=== PATIENT | male | born 1965 | race Hispanic/Latino ===

== ENCOUNTER 2023-03-01 06:17 | Inpatient (IN) | payer BC ==
[2023-03-01] MEDS ORDERED: Fentanyl 250 MCG/5 ML VIAL ONE (06:26)
[2023-03-01] MEDS ORDERED: Midazolam HCl 2 mg/2 ml Vial ONE ×2 (06:26→07:27)
[2023-03-01] MEDS ORDERED: Lidocaine 1% MPF 2 ML VIAL ONE (06:47)
[2023-03-01 06:58] LABS: #Eosinphils 0.1 thou/uL (0.0-0.7); #Monocytes 0.5 thou/uL (0.11-0.59); #Neutrophils 1.6 thou/uL (1.40-6.50); %Basophils 0.5 % (0.0-1.0); %Eosinophils 1.9 % (0.0-10.0); %Lymphocytes 40.3 % (21.0-51.0); %Monocytes 13.7 % (0.0-10.0); %Neutrophils 43.3 % (42.0-75.0); Hematocrit 40.8 % (42.0-52.0); Hemoglobin 13.2 g/dL (14.0-18.0); Mean Corpuscular HGB CONC 32.4 g/dL (32.0-36.0); Mean Corpuscular Hemoglobin 27.2 pg (27.0-31.0); Mean Corpuscular Volume 84.1 fl (78.0-98.0); Mean Platelet Volume 9.8 fL (7.4-10.4); Platelet Count 304 10x3/uL (130-400); RBC Distribution Width 15.4 % (11.5-14.5); Red Blood Cell (RBC) Count 4.85 mill/uL (4.70-6.10); White Blood Cell (WBC) Count 3.7 10x3/uL (4.8-10.8)
[2023-03-01] MEDS ORDERED: Vancomycin 1 GM VIAL ONE (07:12)
[2023-03-01] MEDS ORDERED: Thrombin 5000 UNITS/5 ML VIAL ONE ×2 (07:12→08:27)
[2023-03-01 07:13] LABS: INR-International Normal Ratio 0.9
[2023-03-01 07:14] LABS: PTT 26.7 sec (22.9-36.1)
[2023-03-01 07:19] LABS: Anion Gap 13 mmol/L (10-20); BUN (Urea Nitrogen) 16 mg/dL (8.4-25.7); Calc. Creatinine Clearance 178 mL/min (70-130); Calcium 9.2 mg/dL (7.8-10.44); Carbon Dioxide 26 mmol/L (22-29); Chloride 104 mmol/L (98-107); Estimated GFR 107; Glucose 126 mg/dL (70-105); Potassium 4.1 mmol/L (3.5-5.1); Sodium 139 mmol/L (136-145)
[2023-03-01] MEDS ORDERED: Sodium Chloride 0.9% 100 ML ONE (07:26)
[2023-03-01] MEDS ORDERED: CEFAZOLIN 2 GM VIAL ONE (07:26)
[2023-03-01] MEDS ORDERED: ePHEDrine Sulfate 50 MG/10 ML VIAL ONE (07:53)
[2023-03-01] MEDS ORDERED: Ondansetron PF 4 MG/2 ML Vial ONE ×3 (07:53→11:34)
[2023-03-01] MEDS ORDERED: Ketorolac Tromethamine 30 MG/ML VIAL ONE (07:53)
[2023-03-01] MEDS ORDERED: PHENYLEPHRINE-NS 100 MCG/ML 10 ML SYRINGE ONE (07:53)
[2023-03-01] MEDS ORDERED: Dexamethasone 20 MG/5 ML VIAL ONE (07:53)
[2023-03-01] MEDS ORDERED: Rocuronium Bromide 10 MG/ML (10ML VIAL) ONE (07:53)
[2023-03-01] MEDS ORDERED: PROPOFOL 200 MG/20 ML VIAL ONE (07:53)
[2023-03-01] MEDS ORDERED: HYDROmorphone 2 MG/ML VIAL ONE (08:42)
[2023-03-01] MEDS ORDERED: SUGAMMADEX SODIUM 200 MG/2 ML VIAL ONE (10:14)
[2023-03-01] MEDS ORDERED: Rocuronium Bromide 50 MG/5 ML VIAL ONE (10:14)
[2023-03-01] MEDS ORDERED: diphenhydrAMINE 25 MG CAP PO PRN (11:05)
[2023-03-01] MEDS ORDERED: Acetaminophen 325 MG TAB PO PRN (11:05)
[2023-03-01] MEDS ORDERED: Milk Of Magnesia 30 ML UDCUP PO PRN (11:05)
[2023-03-01] MEDS ORDERED: Ondansetron PF 4 MG/2 ML Vial IVP PRN ×2 (11:05→12:30)
[2023-03-01] MEDS ORDERED: hydrALAZINE 20 MG/ML VIAL SLOW IVP PRN (11:09)
[2023-03-01] MEDS ORDERED: tiZANidine HCl 4 MG TAB PO PRN (11:09)
[2023-03-01] MEDS ORDERED: Morphine Sulfate 100 MG in Dextrose 5% in Water 98 ML IV SCH (12:30)
[2023-03-01] MEDS ORDERED: diphenhydrAMINE 50 MG/ML VIAL IM/IV PRN (12:30)
[2023-03-01] MEDS ORDERED: Naloxone HCl 0.4 mg/ml Vial IV PRN (12:30)
[2023-03-01] MEDS ORDERED: HYDROmorphone 0.5 MG/0.5 ML SYRINGE ONE ×2 (13:01→13:34)
[2023-03-01] MEDS: CEFAZOLIN 2 GM in Sodium Chloride 0.9% 100 ML IVPB SCH ×2 (15:57→22:16)
[2023-03-01 16:09] VITALS: BMI 34.9
[2023-03-01] MEDS: Sodium Chloride 0.9% 1,000 ML IV SCH (16:31)
[2023-03-01] MEDS: Ketorolac Tromethamine 30 MG/ML VIAL IVP SCH ×2 (17:33→23:16)
[2023-03-01] MEDS ORDERED: Ketorolac Tromethamine 30 MG/ML VIAL IVP SCH (18:00)
[2023-03-01] MEDS: Docusate 100 MG CAP PO SCH (20:44)
[2023-03-01] MEDS ORDERED: Gabapentin 300 MG CAP PO SCH (22:00)
[2023-03-01] MEDS ORDERED: Tamsulosin HCl 0.4 MG CAP PO SCH (22:00)
[2023-03-01] MEDS ORDERED: Sertraline 100 MG TAB PO SCH (22:00)
[2023-03-01] MEDS: diphenhydrAMINE 25 MG CAP PO PRN (23:17)
[2023-03-02] MEDS: Sodium Chloride 0.9% 1,000 ML IV SCH ×2 (00:28→13:09)
[2023-03-02] MEDS: CEFAZOLIN 2 GM in Sodium Chloride 0.9% 100 ML IVPB SCH ×3 (05:27→23:38)
[2023-03-02] MEDS: Ketorolac Tromethamine 30 MG/ML VIAL IVP SCH ×4 (05:28→23:38)
[2023-03-02 06:28] LABS: #Monocytes 0.9 thou/uL (0.11-0.59); #Neutrophils 6.3 thou/uL (1.40-6.50); %Basophils 0.1 % (0.0-1.0); %Lymphocytes 15.5 % (21.0-51.0); %Monocytes 10.2 % (0.0-10.0); %Neutrophils 73.8 % (42.0-75.0); Hematocrit 33.6 % (42.0-52.0); Hemoglobin 10.7 g/dL (14.0-18.0); Mean Corpuscular HGB CONC 31.8 g/dL (32.0-36.0); Mean Corpuscular Hemoglobin 27.6 pg (27.0-31.0); Mean Corpuscular Volume 86.6 fl (78.0-98.0); Mean Platelet Volume 10.2 fL (7.4-10.4); Platelet Count 262 10x3/uL (130-400); RBC Distribution Width 15.7 % (11.5-14.5); Red Blood Cell (RBC) Count 3.88 mill/uL (4.70-6.10); White Blood Cell (WBC) Count 8.6 10x3/uL (4.8-10.8)
[2023-03-02 07:33] LABS: Anion Gap 10 mmol/L (10-20); BUN (Urea Nitrogen) 16 mg/dL (8.4-25.7); Calc. Creatinine Clearance 183 mL/min (70-130); Calcium 8.5 mg/dL (7.8-10.44); Carbon Dioxide 30 mmol/L (22-29); Chloride 102 mmol/L (98-107); Estimated GFR 107; Glucose 119 mg/dL (70-105); Potassium 4.3 mmol/L (3.5-5.1); Sodium 138 mmol/L (136-145)
[2023-03-02] MEDS: diphenhydrAMINE 25 MG CAP PO PRN ×2 (08:02→16:49)
[2023-03-02] MEDS: Loratadine 10 MG TAB PO SCH (08:03)
[2023-03-02] MEDS: Fluticasone Propionate Nasal Spray 16 gm Bottle NASAL SCH (08:03)
[2023-03-02] MEDS: Docusate 100 MG CAP PO SCH ×2 (08:03→20:35)
[2023-03-02] MEDS ORDERED: Gabapentin 300 MG CAP PO SCH ×2 (09:00)
[2023-03-02] MEDS ORDERED: Cetirizine HCl 10 MG TAB PO SCH (09:00)
[2023-03-02] MEDS ORDERED: Acetaminophen/Codeine 30-300mg Tablet PO PRN (13:16)
[2023-03-02] MEDS ORDERED: Diazepam 5 MG TAB PO PRN (13:16)
[2023-03-02] MEDS ORDERED: HYDROcodone/Acetaminophen 5/325 mg Tablet PO PRN (13:16)
[2023-03-02] MEDS ORDERED: Morphine 2 MG/ML VIAL SLOW IVP PRN (13:17)
[2023-03-02] MEDS: Gabapentin 300 MG CAP PO SCH ×2 (14:23→20:36)
[2023-03-02] MEDS: HYDROcodone/Acetaminophen 10/325 mg Tablet PO PRN ×2 (14:24→20:40)
[2023-03-02] MEDS ORDERED: Sertraline 100 MG TAB PO SCH ×2 (21:00)
[2023-03-02] MEDS ORDERED: Tamsulosin HCl 0.4 MG CAP PO SCH ×2 (21:00)
[2023-03-03] MEDS: HYDROcodone/Acetaminophen 10/325 mg Tablet PO PRN ×2 (03:18→09:26)
[2023-03-03] MEDS: Sodium Chloride 0.9% 1,000 ML IV SCH (03:21)
[2023-03-03] MEDS: Ketorolac Tromethamine 30 MG/ML VIAL IVP SCH ×2 (05:42→11:28)
[2023-03-03] MEDS: CEFAZOLIN 2 GM in Sodium Chloride 0.9% 100 ML IVPB SCH ×2 (05:43→14:11)
[2023-03-03] MEDS: Docusate 100 MG CAP PO SCH (08:21)
[2023-03-03] MEDS: Loratadine 10 MG TAB PO SCH (08:21)
[2023-03-03] MEDS: Gabapentin 300 MG CAP PO SCH ×2 (08:21→14:11)
[2023-03-03] MEDS: Fluticasone Propionate Nasal Spray 16 gm Bottle NASAL SCH (08:21)
[2023-03-03 15:53] VITALS: BP 123/71; TEMP 98.3
== END 2023-03-03 17:33 | disposition home or self-care (01) | DRG 519 ==
LOC: SDC 06:17 → SURG A 11:03 → OBSVTOIN 03-02 13:14
PROVIDERS: ADMIT Surgery; ATTEND Surgery
PROC: 01NB0ZZ Release Lumbar Nerve, Open Approach (ICD-10-PCS; principal; 2023-03-01)
PROC: 01N80ZZ Release Thoracic Nerve, Open Approach (ICD-10-PCS; 2023-03-01)
PROC: 00NX0ZZ Release Thoracic Spinal Cord, Open Approach (ICD-10-PCS; 2023-03-01)
PROC: 00NY0ZZ Release Lumbar Spinal Cord, Open Approach (ICD-10-PCS; 2023-03-01)
DX: M48.05 Spinal stenosis, thoracolumbar region (principal); G83.4 Cauda equina syndrome; G95.9 Disease of spinal cord, unspecified; G95.20 Unspecified cord compression
CPT/HCPCS: 36415; 80048; 85025; 85610; 85730; 93005; 93010; A4314; C1889; J1100; J1170; J1200; J1885; J2250; J2270; J2405; J2704; J3010; J3370; J3490; J7050; J7070